=== PATIENT | male | born 1980 | race Caucasian/White ===

== ENCOUNTER 2019-02-18 16:15 | Inpatient (IN) ==
[2019-02-18] MEDS ORDERED: ONDANSETRON INJ 2 MG/ML 2 ML VIAL IV STA (16:29)
[2019-02-18] MEDS ORDERED: MoRPHine SULFATE 4 MG/ML 1 ML CARP\\VIAL IV PRN (16:29)
[2019-02-18] MEDS ORDERED: SODIUM CHLORIDE 0.9% 1000ML 1,000 ML IV SCH (16:30)
--- NOTE | 2019-02-18 16:49 | Emergency Department Note ---
Entered by Citlali Tian acting as a scribe for History of Present Illness General Chief complaint: Abdominal Pain Stated complaint: BELLY PAIN Time Seen by Provider: 02/18/19 16:27 History of Present Illness Provider complaint: RUQ abdominal pain Onset (ago): day(s) 4 Location: abdomen (RUQ) Radiation: back (upper right side) Pain Consistency: + constant Maximum Pain Intensity: 10 Exacerbated By: + eating (today after lunch) Associated symptoms: + denies other symptoms (rectal bleeding, vomiting, history of cholecystectomy, appendectomy and kidney stones. ) and + other (nauseas, dark urine) The patient is a 38 year old male who presents to the ED with complaints of constant RUQ abdominal pain that started 4 days ago. The patient states that the pain radiates into the upper right side of his back. The patient states that his pain was exacerbated today after eating lunch. The patient states that he also feels nauseas and his urine has been darker than usual. The patient denies rectal bleeding, vomiting and a history of cholecystectomy, appendectomy and kidney stones. Home Medications Home Medications Medication Instructions Recorded Confirmed Type atenolol 0 mg PO QAM 12/25/18 02/18/19 History dextroamphetamine-amphetamine 20 mg PO BID 12/25/18 02/18/19 History [Adderall] sertraline [Zoloft] 100 mg PO QPM 12/25/18 02/18/19 History ghapzkw-pnfxgzpyyfwyv-fmqeqbza 1 tab PO Q6H PRN 02/18/19 02/18/19 History [Excedrin Migraine] nicotine [Nicoderm CQ] 1 patch TD DAILY PRN 02/18/19 02/18/19 History Allergies Allergy/AdvReac Type Severity Reaction Status Date / Time No Known Allergies Allergy Unverified 12/25/18 23:02 Past Med/Surg History Medical History No pertinent past medical history Surgical History H/O shoulder surgery S/P tooth extraction Social History Preferred Language: Finnish Communication Ability: Effective Title Curator Required: No Beliefs That Will Affect Care: None Current Living Situation: Homeless Feels Safe at Home: Yes Smoking Status: Current every day smoker Tobacco Type: cigarettes ; Second Hand Exposure: Yes ; Hx Alcohol Use: No Hx Substance Use: Yes substance use type: marijuana Last Used Substance: Days (ago) Review of Systems See HPI for pertinent positives & negatives. and A total of 10 systems reviewed and were otherwise negative Physical Exam Vital Signs Vital Signs - 24 hr 02/18/19 16:24 02/18/19 16:46 02/18/19 16:47 Temperature 36.4 C L Temperature Source Oral Pulse Rate 106 H Pulse Rate from SpO2 Sensor Respiratory Rate 16 Respiratory Effort / Characteristics Non-Labored Spontaneous Respiratory Depth Normal Blood Pressure 131/79 Blood Pressure Mean 96 Blood Pressure Position Sitting Pulse Oximetry 98 98 Oxygen Delivery Method Room Air Room Air Room Air Sepsis Recent Fever Within 48 Hours No Sepsis Action Taken by Nursing No Action Required 02/18/19 17:30 02/18/19 19:03 Temperature Temperature Source Pulse Rate 92 H 83 Pulse Rate from SpO2 Sensor 94 H 84 Respiratory Rate 30 H 22 Respiratory Effort / Characteristics Respiratory Depth Blood Pressure 124/72 118/65 Blood Pressure Mean 79 91 Blood Pressure Position Pulse Oximetry 96 95 Oxygen Delivery Method Sepsis Recent Fever Within 48 Hours Sepsis Action Taken by Nursing GENERAL: Patient is awake alert in no acute distress patient is resting comfortably and showing no signs of anxiety EYES: The conjunctivae are clear. The pupils are round and reactive. EARS, NOSE, MOUTH AND THROAT: The nose is without any evidence of any deformity. Mucous membranes are moist. Tongue is midline. NECK: The neck is nontender and supple. RESPIRATORY: Normal respiratory effort is noted there is no evidence of wheezing rhonchi or rales CARDIOVASCULAR: Regular rate and rhythm noted there no murmurs rubs or gallops normal S1 normal S2. GASTROINTESTINAL: The abdomen is soft. There is right upper quadrant tenderness to palpation with significant guarding. BACK: No midline tenderness or or step-off noted range of motion in flexion extension as well as rotation no signs of muscle spasm noted MUSCULOSKELETAL/EXTREMITIES: There is no evidence of gross deformity full range of motion is noted in the hips and shoulders. SKIN: There is no obvious evidence of any rash. There are no petechiae, pallor or cyanosis noted. NEUROLOGIC: Patient is awake alert and oriented x3. Course Course 1629: Past medical records reviewed. The patient was evaluated in room A04B. A complete history and physical exam was performed. 1724: I reevaluated the patient and he is still in pain after receiving pain medication. 1727: I discussed the patient's case with Dr. Dominique Johnson. He recommends getting an ultrasound on the patient. 1859: I discussed the patient's ultrasound results with Dr. Dominique Johnson. He will evaluate the patient for further management. 190: I updated the patient on the plan for admission and he verbally agrees and understands. Consultations Consultation #1: I discussed the patient's case with Dr. Dominique Johnson. He recommends getting an ultrasound on the patient. Time: 17:27 Consultation #2: I discussed the patient's ultrasound results with Dr. Dominique Johnson. He will evaluate the patient for further management. Time: 18:59 Administered Medications Hydromorphone HCl (Dilaudid) 1 mg IV Q3H PRN PRN Reason: MILD Pain (Scale 1,2,3) Stop: 03/04/19 19:40 Last Admin: 02/18/19 21:53 Dose: 1 mg Documented by: [id number] Lactated Ringer's (Lr) 1,000 mls @ 125 mls/hr IV .Q8H BORIS Stop: 03/20/19 19:40 Last Admin: 02/18/19 21:53 Dose: 125 mls/hr Documented by: [id number] Piperacillin Sod/Tazobactam (Sod 3.375 gm/ Dextrose) 115 mls @ 28.75 mls/hr IV Q8H BORIS; Protocol Stop: 02/28/19 19:40 Last Admin: 02/18/19 21:53 Dose: 28.8 mls/hr Documented by: [id number] Sertraline HCl (Zoloft) 100 mg PO QPM BORIS Stop: 03/20/19 20:59 Last Admin: 02/18/19 22:05 Dose: 100 mg Documented by: [id number] Discontinued Medications Sodium Chloride (Nss 1000ml) 1,000 mls @ 999 mls/hr IV .Q1H1M BORIS Stop: 02/18/19 17:30 Last Infusion: 02/18/19 17:40 Dose: 0 mls/hr Documented by: [id number] Admin: 02/18/19 16:41 Dose: 999 mls/hr Documented by: [id number] Piperacillin Sod/Tazobactam Sod (Zosyn) 4.5 gm in 120 mls @ 240 mls/hr IV NOW ONE Stop: 02/18/19 17:59 Last Infusion: 02/18/19 18:53 Dose: 0 mls/hr Documented by: [id number] Admin: 02/18/19 17:36 Dose: 240 mls/hr Documented by: [id number] Ioversol (Optiray 320 100ml) 90 ml IV ONCE PRN PRN Reason: Interaction Checking Stop: 02/22/19 17:03 Last Admin: 02/18/19 17:04 Dose: 90 ml Documented by: [id number] Morphine Sulfate (Morphine Sulfate) 4 mg IV Q15M PRN PRN Reason: Pain Stop: 03/04/19 16:28 Last Admin: 02/18/19 16:42 Dose: 4 mg Documented by: [id number] Ondansetron HCl (Zofran) 4 mg IV NOW STA Stop: 02/18/19 16:30 Last Admin: 02/18/19 16:42 Dose: 4 mg Documented by: [id number] Medical Decision Making Differential Diagnosis Differential diagnosis: Etiologies such as biliary colic, cholecystitis, hepatitis, pancreatitis, cardiac disease, pancreatitis, gastritis, peptic ulcer disease, appendicitis, cystitis, diverticulitis, mesenteric ischemia, inflammatory bowel disease, ileus, bowel obstruction, testicular torsion, aortic pathology, shingles, as well as others were considered. Medical Records Attestation: I reviewed the patient's medical records. Home Medications Current Medication List: was personally reviewed by me Laboratory Data Attestation: I reviewed the patient's lab results. Result diagrams: 02/18/19 16:39 02/18/19 16:39 Lab Results 02/18/19 02/18/19 02/18/19 Range/Units 16:39 16:39 16:44 WBC 9.62 (4.8-10.8) K/uL RBC 4.72 (4.7-6.1) M/uL Hgb 15.8 (14.0-18.0) g/dL POC Hgb 15.6 (14.0-18.0) g/dl Hct 45.7 (42-52) % POC Hct 46 (42-52) % MCV 96.8 (80-100) fL MCH 33.5 (25-34) pg MCHC 34.6 (32-36) g/dL RDW Std Deviation 46.7 H (36.4-46.3) fL RDW Coeff of Zakia 13.2 (11.5-14.5) % Plt Count 261 (130-400) K/uL MPV 10.5 H (7.4-10.4) fL Immature Gran % (Auto) 0.3 % Neut % (Auto) 54.5 % Lymph % (Auto) 34.7 % [facility] % (Auto) 7.8 % Eos % (Auto) 2.0 % Baso % (Auto) 0.7 % Immature Gran # (Auto) 0.03 H (0.00-0.02) K/uL Neut # (Auto) 5.24 (1.4-6.5) K/uL Lymph # (Auto) 3.34 (1.2-3.4) K/uL [facility] # (Auto) 0.75 H (0.11-0.59) K/uL Eos # (Auto) 0.19 (0-0.5) K/uL Baso # (Auto) 0.07 (0-0.2) K/uL POC Sodium 141 (135-144) mEq/L Sodium 139 (136-145) mmol/L POC Potassium 3.7 (3.3-5.0) mEq/L Potassium 3.7 (3.5-5.1) mmol/L POC Chloride 105 (101-112) mEq/L Chloride 110 H (98-107) mmol/L Carbon Dioxide 26 (21-32) mmol/L POC Total CO2 25 (24-31) mEq/l Anion Gap 3.0 (3-11) POC Anion Gap 15.0 L (16-25) mmol/L POC BUN 17 (7-18) mg/dl BUN 16 (7-18) mg/dl Creatinine 1.10 (0.6-1.4) mg/dl POC Creatinine 1.0 (0.6-1.3) mg/dl Est Cr Clr Drug Dosing 112.7 ml/min Est GFR ( Amer) 98.9 Est GFR (Non-Af Amer) 85.3 BUN/Creatinine Ratio 14.8 (10-20) Glucose 89 (70-99) mg/dl POC Glucose (other) 88 (70-99) mg/dl Calcium 8.8 (8.5-10.1) mg/dl POC Ioniz Calcium Kemi 1.15 (1.12-1.32) mmol/l Total Bilirubin 0.2 (0.2-1) mg/dl AST 14 L (15-37) U/L ALT 43 (12-78) U/L Alkaline Phosphatase 79 (45-117) U/L Total Protein 7.6 (6.4-8.2) gm/dl Albumin 3.9 (3.4-5.0) gm/dl Globulin 3.7 (2.5-4.0) gm/dl Albumin/Globulin Ratio 1.1 (0.9-2) Lipase 188 (73-393) U/L Urine Color Urine Appearance (Clear) Urine pH (4.5-7.5) Ur Specific Rolette (1.000-1.030) Urine Protein (Negative) Urine Glucose (UA) (Negative) Urine Ketones (Negative) Urine Blood (Negative) Urine Nitrite (Negative) Urine Bilirubin (Negative) Urine Urobilinogen (Negative) Ur Leukocyte Esterase (Negative) 02/18/19 Range/Units 19:25 WBC (4.8-10.8) K/uL RBC (4.7-6.1) M/uL Hgb (14.0-18.0) g/dL POC Hgb (14.0-18.0) g/dl Hct (42-52) % POC Hct (42-52) % MCV (80-100) fL MCH (25-34) pg MCHC (32-36) g/dL RDW Std Deviation (36.4-46.3) fL RDW Coeff of Zakia (11.5-14.5) % Plt Count (130-400) K/uL MPV (7.4-10.4) fL Immature Gran % (Auto) % Neut % (Auto) % Lymph % (Auto) % [facility] % (Auto) % Eos % (Auto) % Baso % (Auto) % Immature Gran # (Auto) (0.00-0.02) K/uL Neut # (Auto) (1.4-6.5) K/uL Lymph # (Auto) (1.2-3.4) K/uL [facility] # (Auto) (0.11-0.59) K/uL Eos # (Auto) (0-0.5) K/uL Baso # (Auto) (0-0.2) K/uL POC Sodium (135-144) mEq/L Sodium (136-145) mmol/L POC Potassium (3.3-5.0) mEq/L Potassium (3.5-5.1) mmol/L POC Chloride (101-112) mEq/L Chloride (98-107) mmol/L Carbon Dioxide (21-32) mmol/L POC Total CO2 (24-31) mEq/l Anion Gap (3-11) POC Anion Gap (16-25) mmol/L POC BUN (7-18) mg/dl BUN (7-18) mg/dl Creatinine (0.6-1.4) mg/dl POC Creatinine (0.6-1.3) mg/dl Est Cr Clr Drug Dosing ml/min Est GFR ( Amer) Est GFR (Non-Af Amer) BUN/Creatinine Ratio (10-20) Glucose (70-99) mg/dl POC Glucose (other) (70-99) mg/dl Calcium (8.5-10.1) mg/dl POC Ioniz Calcium Kemi (1.12-1.32) mmol/l Total Bilirubin (0.2-1) mg/dl AST (15-37) U/L ALT (12-78) U/L Alkaline Phosphatase (45-117) U/L Total Protein (6.4-8.2) gm/dl Albumin (3.4-5.0) gm/dl Globulin (2.5-4.0) gm/dl Albumin/Globulin Ratio (0.9-2) Lipase (73-393) U/L Urine Color Yellow Urine Appearance Clear (Clear) Urine pH 7.5 (4.5-7.5) Ur Specific Rolette > 1.045 H (1.000-1.030) Urine Protein Negative (Negative) Urine Glucose (UA) Negative (Negative) Urine Ketones Negative (Negative) Urine Blood Negative (Negative) Urine Nitrite Negative (Negative) Urine Bilirubin Negative (Negative) Urine Urobilinogen Negative (Negative) Ur Leukocyte Esterase Negative (Negative) Imaging Data Radiologist's Impression: Radiology results as stated below per my review and the radiologist's interpretation: ABDOMEN AND PELVIS CT WITH IV CONTRAST CT DOSE: 877.68 mGy.cm HISTORY: Right upper abdominal pain. TECHNIQUE: Multiaxial CT images of the abdomen and pelvis were performed following the use of intravenous contrast. A dose lowering technique was utilized adhering to the principles of ALARA. COMPARISON STUDY: None. FINDINGS: The lung bases are clear. No pneumoperitoneum. No pneumatosis. Bila teral L5 spondylolysis. Small diverticulum at the second portion of the duodenum. Tiny fat-containing bilateral inguinal hernias. The liver, spleen, adrenal glands, pancreas, and kidneys are unremarkable. No hydronephrosis. No retroperitoneal lymphadenopathy. The gallbladder slightly distended. There is minimal inflammatory change surrounding the gallbladder. Therefore, this is concerning for a developing acute cholecystitis. Normal bladder. No bowel wall thickening or obstruction. Normal appendix. IMPRESSION: The gallbladder slightly distended. There is minimal inflammatory change surrounding the gallbladder. Therefore, this is concerning for a developing acute cholecystitis. Clinical correlation and/or right upper quadrant ultrasound recommended. ACT 112: Negative or not required by law. Electronically signed by: Nino Mitchell M.D. 02/18/2019 5:19 PM ABDOMINAL ULTRASOUND, RIGHT UPPER QUADRANT HISTORY: Right upper quadrant pain. COMPARISON: Abdomen and pelvis CT 02/18/2019. FINDINGS: Pancreas: Obscured by overlying bowel gas. Liver: Unremarkable. Gallbladder: The gallbladder is mildly distended. Mild gallbladder wall t hickening up to 4 mm. A few punctate gallstones are identified. The technologist was unable to assess for a sonographic Parks sign due to prior administration of pain medication. CBD: 3 mm in diameter. Right kidney: No hydronephrosis. IMPRESSION: Mildly distended gallbladder with mild gallbladder wall thickening and a few punctate gallstones. This is concerning for acute cholecystitis. Clinical correlation recommended. ACT 112: Negative or not required by law. Electronically signed by: Nino Mitchell M.D. 02/18/2019 6:51 PM Blood Pressure Blood Pressure Findings: Elevated blood pressure Blood Pressure Disposition: further management by hospitalist SHANKAR Diallo The patient is a 38-year-old male who presented to the emergency department for an evaluation of right upper quadrant pain. The patient was seen initially at [facility] but then was sent to the emergency department for further evaluation. The patient's history and physical exam appear to be consistent with cholecystitis. His white blood cell count was not elevated. His liver function studies were not elevated. CT of the abdomen and pelvis was obtained and showed signs of possible cholecystitis. This was confirmed on ultrasound. The patient was treated with IV fluids IV pain medication and IV antiemetics. He was also treated with IV antibiotics. I discussed his case with the on-call general surgeon. They have agreed to evaluate the patient in the emergency department for further management and disposition. I discussed the patient's laboratory and radiographic studies with him. Impression & Plan Acute cholecystitis, RUQ abdominal pain Discharge Plan Visit Data *Final* Discharge Date/Time: 02/18/19 19:57 Chief Complaint: Abdominal Pain Stated Complaint: BELLY PAIN ED Provider: Gonzalez Johnson Discharge Problem: Acute cholecystitis, RUQ abdominal pain Patient Disposition: Admitted As Inpatient Discharge Instructions Interventions: ED Discharge Assessment Last Done: 02/18/19 19:57 The scribe's documentation has been prepared under my direction and personally reviewed by me in its entirety. I confirm that the note above accurately reflects all work, treatment, procedures, and medical decision making performed by me.
[2019-02-18 16:50] LABS: Basophils # (auto) 0.07 K/uL (0-0.2); Basophils % (auto) 0.7 %; Eosinophils # (auto) 0.19 K/uL (0-0.5); Hematocrit (blood only) 45.7 % (42-52); Hemoglobin 15.8 g/dL (14.0-18.0); Immature Granulocytes # (auto) 0.03 K/uL (0.00-0.02); Immature Granulocytes % (auto) 0.3 %; Lymphocytes # (auto) 3.34 K/uL (1.2-3.4); Lymphocytes % (auto) 34.7 %; Mean Corpuscular Hemoglobin 33.5 pg (25-34); Mean Corpuscular Hgb Conc 34.6 g/dL (32-36); Mean Corpuscular Volume 96.8 fL (80-100); Mean Platelet Volume 10.5 fL (7.4-10.4); Monocytes # (auto) 0.75 K/uL (0.11-0.59); Monocytes % (auto) 7.8 %; Neutrophils # (auto) 5.24 K/uL (1.4-6.5); Neutrophils % (auto) 54.5 %; Platelet Count 261 K/uL (130-400); RDW Coefficient of Variation 13.2 % (11.5-14.5); RDW Standard Deviation 46.7 fL (36.4-46.3); Red Blood Count 4.72 M/uL (4.7-6.1); White Blood Count 9.62 K/uL (4.8-10.8)
[2019-02-18 16:57] LABS: iSTAT Hemoglobin 15.6 g/dl (14.0-18.0); iSTAT Ionized Calcium 1.15 mmol/l (1.12-1.32); iSTAT Potassium 3.7 mEq/L (3.3-5.0)
[2019-02-18] MEDS ORDERED: IOVERSOL 100ml IV PRN (17:04)
[2019-02-18 17:10] LABS: Albumin Level 3.9 gm/dl (3.4-5.0); BUN Creatinine Ratio 14.8 (10-20); Calcium 8.8 mg/dl (8.5-10.1); Creatinine Clr Calc Pharmacy 112.7 ml/min; Est GFR (African American) 98.9; Est GFR (Non-African American) 85.3; Potassium 3.7 mmol/L (3.5-5.1)
[2019-02-18 17:12] LABS: Albumin Globulin Ratio 1.1 (0.9-2); Bilirubin,Total 0.2 mg/dl (0.2-1); Globulin 3.7 gm/dl (2.5-4.0); Total Protein 7.6 gm/dl (6.4-8.2)
--- NOTE | 2019-02-18 17:20 | CT Scan Report ---
ABDOMEN AND PELVIS CT WITH IV CONTRAST CT DOSE: 877.68 mGy.cm HISTORY: Right upper abdominal pain. TECHNIQUE: Multiaxial CT images of the abdomen and pelvis were performed following the use of intrave nous contrast. A dose lowering technique was utilized adhering to the principles of ALARA. COMPARISON STUDY: None. FINDINGS: The lung bases are clear. No pneumoperitoneum. No pneumatosis. Bilateral L5 spondylolysis. Small diverticulum at the second portion of the duodenum. Tiny fat-containing bilateral inguinal davidson ias. The liver, spleen, adrenal glands, pancreas, and kidneys are unremarkable. No hydronephrosis. No retroperitoneal lymphadenopathy. The gallbladder slightly distended. There is minimal inflammatory c hange surrounding the gallbladder. Therefore, this is concerning for a developing acute cholecystitis . Normal bladder. No bowel wall thickening or obstruction. Normal appendix. IMPRESSION: The gallbladder slightly distended. There is minimal inflammatory change surrounding the gallbladder. Therefore, this is concerning for a developing acute cholecystitis. Clinical correlation and/or righ t upper quadrant ultrasound recommended. ACT 112: Negative or not required by law. Electronically signed by: Nino Mitchell M.D. 02/18/2019 5:19 PM
[2019-02-18] MEDS ORDERED: PIPERACILLIN/TAZOBACTAM 4.5 GM/120 ML BAG IV ONE (17:30)
[2019-02-18] MEDS ORDERED: PIPERACILL/TAZOBAC CONSULT ACTIVE PRN ×2 (17:30→19:41)
--- NOTE | 2019-02-18 18:53 | Ultrasound Report ---
ABDOMINAL ULTRASOUND, RIGHT UPPER QUADRANT HISTORY: Right upper quadrant pain. COMPARISON: Abdomen and pelvis CT 02/18/2019. FINDINGS: Pancreas: Obscured by overlying bowel gas. Liver: Unremarkable. Gallbladder: The gallbladder is mildly distended. Mild gallbladder wall thickening up to 4 mm. A few punctate gallstones are identified. The technologist was unable to assess for a sonographic Parks si gn due to prior administration of pain medication. CBD: 3 mm in diameter. Right kidney: No hydronephrosis. IMPRESSION: Mildly distended gallbladder with mild gallbladder wall thickening and a few punctate gallstones. Thi s is concerning for acute cholecystitis. Clinical correlation recommended. ACT 112: Negative or not required by law. Electronically signed by: Nino Mitchell M.D. 02/18/2019 6:51 PM
[2019-02-18] MEDS ORDERED: ONDANSETRON INJ 2 MG/ML 2 ML VIAL IV PRN (19:41)
[2019-02-18] MEDS ORDERED: HYDROCODONE/ACETAMOPHEN 5/325MG TAB PO PRN (19:41)
--- NOTE | 2019-02-18 19:52 | History & Physical Report ---
Date of Service February 18, 2019 Assessment & Plan (1) Acute cholecystitis: The patient denied any previous history of fatty food spicy food intolerances although tonight he felt quite bloated after eating [place] food earlier today he has been sick for 4 days and he said he was hungry and wanted [place] foods His family history states that his dad's gallbladder exploded Pathophysiology of gallbladder disease was discussed with the patient and significant other including the recent finding of an acute cholecystitis without any evidence of common bile duct stones either clinically (no jaundice no changes in urine) and chemically liver function test normal radiographically no common bile duct dilatation This I recommended to proceed with laparoscopic cholecystectomy cholangiogram possible open and will proceed accordingly in the morning Risk and complications of the procedure were explained to the patient including injury to other organs bile leak infection and he would like to proceed accordingly Present on Admission?: Yes History of Present Illness This 38-year-old gentleman who came into the emergency room after 4-day history of abdominal pain and localized mostly right upper quadrant was evaluated by the emergency room physician including CT scan of the abdomen and ultrasound and we are consults regarding acute cholecystitis since the ultrasound showed stones and thick walled gallbladder The patient and his significant other originally from [place] recently moved in the area and are living in a homeless care home Primary Care Provider: NO PCP Allergies Allergy/AdvReac Type Severity Reaction Status Date / Time No Known Allergies Allergy Unverified 12/25/18 23:02 Home Medications Home Medications Medication Instructions Recorded Confirmed Type atenolol 0 mg PO QAM 12/25/18 02/18/19 History dextroamphetamine-amphetamine 20 mg PO BID 12/25/18 02/18/19 History [Adderall] sertraline [Zoloft] 100 mg PO QPM 12/25/18 02/18/19 History kiiltwx-qtyxdqfsxwbwh-cgniecfk 1 tab PO Q6H PRN 02/18/19 02/18/19 History [Excedrin Migraine] nicotine [Nicoderm CQ] 1 patch TD DAILY PRN 02/18/19 02/18/19 History Past Med/Surg History Medical History No pertinent past medical history Surgical History H/O shoulder surgery S/P tooth extraction Social History Feels Safe at Home: Yes Smoking Status: Current every day smoker Physical Exam Constitutional: WD/WN, vitals as above well developed, well nourished and + obese Eyes: PERRL, conjunctivae normal, anicteric sclerae ENMT: external ear and nose normal, oropharynx normal Neck: trachea midline, no thyromegaly Respiratory: normal respiratory effort, lungs clear to auscultation Cardiovascular: RRR, no murmur, no edema Gastrointestinal (Abdomen): Exquisite tenderness in the right upper quadrant negative Parks sign rest of the abdomen is negative Musculoskeletal: no cyanosis or clubbing, extremities motor strength 5/5 Skin: no rashes, warm and dry Results & Data Vital Signs (Past 12 Hours) Vital Signs Temp Pulse Resp BP Pulse Ox 02/18/19 19:03 83 22 118/65 95 02/18/19 17:30 92 H 30 H 124/72 96 02/18/19 16:46 98 02/18/19 16:24 36.4 C L 106 H 16 131/79 98 Code Status & VTE Plan VTE Prophylaxis Plan VTE Prophylaxis will be ordered: Yes PG Care Time/CCT Total # of Minutes Spent Total Time Spent with Patient: Total time spent is greater than 50% in coordination of care (as documented) at patient's floor/unit and/or counseling patient:
[2019-02-18 20:01] LABS: Appearance Urine Clear (Clear); Bilirubin Urine Negative (Negative); Blood Urine Negative (Negative); Color Urine Yellow; Glucose Urine UA Negative (Negative); Ketones Urine Negative (Negative); Leukocyte Esterase Urine Negative (Negative); Nitrite Urine Negative (Negative); Protein Urine Negative (Negative); Specific Gravity Urine > 1.045 (1.000-1.030); Urobilinogen Urine Negative (Negative); pH Urine 7.5 (4.5-7.5)
[2019-02-18] MEDS ORDERED: NICOTINE 21 MG/24 HR TDSY TD PRN (20:19)
[2019-02-18] MEDS: LACTATED RINGER'S 1,000 ML IV SCH (21:53)
[2019-02-18] MEDS: HYDROmorphone INJ 0.5 MG/0.5 ML SYR IV PRN (21:53)
[2019-02-18] MEDS: PIPERACILLIN/TAZOBACTAM 3.375 GM in DEXTROSE 5% 100 ML IV SCH (21:53)
[2019-02-18] MEDS: SERTRALINE HCL 100 MG TABLET PO SCH (22:05)
[2019-02-19] MEDS: LACTATED RINGER'S 1,000 ML IV SCH ×3 (04:19→13:55)
[2019-02-19] MEDS: PIPERACILLIN/TAZOBACTAM 3.375 GM in DEXTROSE 5% 100 ML IV SCH ×2 (04:19→13:40)
[2019-02-19] MEDS: AMPHETAMINE ASP/SULF/DEXTRAMPH 20 MG TAB PO SCH ×2 (06:06→13:55)
[2019-02-19] MEDS ORDERED: PNEUMOCOCCAL Polysaccharide Vaccine 25mcg/0.5mL vial/Syr IM ONE (06:30)
[2019-02-19] MEDS: HYDROmorphone INJ 0.5 MG/0.5 ML SYR IV PRN (07:55)
--- NOTE | 2019-02-19 08:02 | History & Physical Bridge Note ---
Date of Service February 19, 2019 History & Physical Bridge Note I have examined the patient, reviewed the History & Physical and in the interval since the performance of the History & Physical I have noted the following changes of clinical significance: no changes noted Patient is alert laying in bed significant other sleeping on a couch next to bed Patient still complaining of pain right upper quadrant on exam unchanged from yesterday tender but no Parks sign We will proceed with lap cholecystectomy intraoperative cholangiogram possible open scheduled for this morning
[2019-02-19] MEDS: ATENOLOL 25 MG TABLET PO SCH (09:29)
[2019-02-19] MEDS ORDERED: fentaNYL citrate 100 MCG/2 ML VIAL ONE ×3 (10:05→11:40)
[2019-02-19] MEDS ORDERED: ROCURONIUM BROMIDE 10 MG/ML 5 ML VIAL ONE (10:05)
[2019-02-19] MEDS ORDERED: LIDOCAINE HCL 2% 2 ML VIAL/AMP(20MG/ML) INFIL ONE (10:05)
[2019-02-19] MEDS ORDERED: NEOSTIGMINE METHYLSULFATE 5 MG/5 ML SYR ONE (10:05)
[2019-02-19] MEDS ORDERED: LARYING-O-JET KIT (LTA) ONE (10:05)
[2019-02-19] MEDS ORDERED: GLYCOPYRROLATE 0.2 MG/ML VIAL ONE (10:05)
[2019-02-19] MEDS ORDERED: PROPOFOL IV EMULSION 10 MG/ML 20 ML VIAL IV ONE (10:05)
[2019-02-19] MEDS ORDERED: MIDAZOLAM HCL 1 MG/ML 2ML VIAL ONE (10:05)
[2019-02-19] MEDS ORDERED: ONDANSETRON INJ 2 MG/ML 2 ML VIAL IV PRN (10:19)
[2019-02-19] MEDS ORDERED: HYDROmorphone INJ 2 MG/ML SYR/VIAL IV PRN (10:19)
[2019-02-19] MEDS ORDERED: PROMETHAZINE HCL 6.25 MG in SODIUM CHLORIDE 0.9% 50 ML IV PRN (10:19)
[2019-02-19] MEDS ORDERED: ATROPINE SULFATE 0.1 MG/ML 10ML SYR IV PRN (10:19)
[2019-02-19] MEDS ORDERED: ePHEDrine sulfate 50 MG/ML AMP IV PRN (10:19)
--- NOTE | 2019-02-19 10:19 | Anesthesiology Consultation ---
Date of Service February 19, 2019 Obesity Smoker ?DEE per girlfriend Assessment & Plan (1) Encounter for pre-operative examination: Chart Review Chart Review: Acceptable Risk for Surgery and Patient NOT seen in Pre Admission Testing Consults Requested none ASA ASA2 Proposed Anesthesia Anesthesia Type: General Risk / Benefits Reviewed With: PT / POA / Parent / Guardian, Accepts Plan and Informed Consent Obtained History Surgery Operation Date: 02/19/19 07:00 Proposed Procedures p Laparoscopic Cholecystectomy with Cholangiogram, Possible Open - Luis Antonio Maryanne Barnard MD Height/Weight Height: 5 ft 11 in Weight: 102.9 kg Allergies Allergy/AdvReac Type Severity Reaction Status Date / Time No Known Allergies Allergy Unverified 12/25/18 23:02 Medications Home Medications Medication Instructions Recorded Confirmed Last Taken atenolol 0 mg PO QAM 12/25/18 02/18/19 02/17/19 dextroamphetamine-amphetamine 20 mg PO BID 12/25/18 02/18/19 02/18/19 [Adderall] sertraline [Zoloft] 100 mg PO QPM 12/25/18 02/18/19 02/17/19 biezadz-zkhuwynijbams-kvzeaflr 1 tab PO Q6H PRN 02/18/19 02/18/19 02/17/19 17:00 [Excedrin Migraine] 2 tabs nicotine [Nicoderm CQ] 1 patch TD DAILY PRN 02/18/19 02/18/19 Unknown Active Medications Generic Name Dose Route Start Last Admin Trade Name Freq PRN Reason Stop Dose Admin Hydrocodone Bitart/Acetaminophen 1 tab 02/18/19 19:41 02/19/19 04:18 [place] 5/325 PO 03/04/19 19:40 1 tab Q4H PRN Administration MODERATE Pain (Scale 4,5,6) Amphetamine/Dextroamphetamine 20 mg 02/19/19 07:00 02/19/19 06:06 Adderall PO 03/05/19 06:59 20 mg BID@0700,1300 BORIS Administration Atenolol 25 mg 02/19/19 09:00 02/19/19 09:29 Tenormin PO 03/21/19 08:59 25 mg QAM BORIS Administration Hydromorphone HCl 1 mg 02/18/19 19:41 02/19/19 07:55 Dilaudid IV 03/04/19 19:40 1 mg Q3H PRN Administration MILD Pain (Scale 1,2,3) Lactated Ringer's 1,000 mls @ 125 mls/hr 02/18/19 19:41 02/19/19 04:19 Lr IV 03/20/19 19:40 125 mls/hr .Q8H BORIS Administration Piperacillin Sod/Tazobactam 115 mls @ 28.75 mls/hr 02/18/19 19:41 02/19/19 09:26 Sod 3.375 gm/ Dextrose IV 02/28/19 19:40 Infused Q8H BORIS Infusion Protocol Miscellaneous 1 ea 02/19/19 08:59 02/19/19 09:26 Remove Nicoderm Patch N/A 03/21/19 08:58 Not Given DAILY@0859 BORIS Sertraline HCl 100 mg 02/18/19 21:00 02/18/19 22:05 Zoloft PO 03/20/19 20:59 100 mg QPM BORIS Administration NPO Date Last Intake of Fluids: 02/18/19 Time Last Intake of Fluids: 14:00 Date Last Intake of Solids: 02/18/19 Time Last Intake of Solids: 14:00 Past Medical History Medical History No pertinent past medical history Exercise / Class Metabolic Activity II 4-5 Yardwork/Stairs/Walk up hill Past Surgical History Surgical History H/O shoulder surgery S/P tooth extraction Past Anesthesia History No Hx of Anesthesia Complications and No Family Hx of Anesthesia Complications History of PONV No Hx of PONV and No Hx of Motion Sickness Social History Smoking Status: Current every day smoker tobacco type: cigarettes Do You Dip or Chew Tobacco: No Hx Alcohol Use: No Hx Substance Use: Yes substance use type: marijuana Last Used Substance: Days (ago) Last Used Substance Other:: 02/17/2019 Physical Exam Vital Signs Last Vital Signs Temp 36.4 C L 02/19/19 10:08 Pulse 80 02/19/19 10:08 Resp 18 02/19/19 10:08 BP 129/86 02/19/19 10:08 Pulse Ox 96 02/19/19 10:08 ENMT Mouth: no dentition abnormality Thyromental Distance: > or= 3.5 Finger Breadths Mallampati Class: II Neck normal visual inspection Respiratory normal respiratory effort Auscultation: lungs clear to auscultation bilaterally Cardiovascular Rate/Rhythm: regular rate and regular rhythm Psychiatric Orientation: alert Testing Laboratory Results 02/18/19 16:39 02/18/19 16:39 Urine Color Yellow 02/18/19 19:25 Urine Appearance Clear (Clear) 02/18/19 19:25 Urine pH 7.5 (4.5-7.5) 02/18/19 19:25 Ur Specific [place] > 1.045 (1.000-1.030) H 02/18/19 19:25 Urine Protein Negative (Negative) 02/18/19 19:25 Urine Glucose (UA) Negative (Negative) 02/18/19 19:25 Urine Ketones Negative (Negative) 02/18/19 19:25 Urine Nitrite Negative (Negative) 02/18/19 19:25 Ur Leukocyte Esterase Negative (Negative) 02/18/19 19:25
[2019-02-19] MEDS ORDERED: CONRAY 60% 50 ML VIAL ONE (10:29)
[2019-02-19] MEDS ORDERED: LIDOCAINE/EPINEPHRINE 1% 20 ML VIAL ONE (10:29)
--- NOTE | 2019-02-19 11:37 | Fluoroscopy Report ---
INTRAOPERATIVE CHOLANGIOGRAM HISTORY: Post cholecystectomy. FLUOROSCOPY TIME: 6 seconds. 4 fluoroscopic spot images. FINDINGS: Fluoroscopy was provided for an intraoperative cholangiogram status post cholecystectomy. C ontrast was injected through the cystic duct remnant. The common bile duct is normal in course and ca liber. Small round filling defects within the proximal common bile duct are seen on image 1 and 2. Ho wever, these are not seen on images 3 or 4. Therefore, these favor gas bubbles. Contrast extends into the small bowel. There is no intrahepatic bile duct dilatation. IMPRESSION: Fluoroscopy provided for an intraoperative cholangiogram status post cholecystectomy. No filling defects within the common bile duct. ACT 112: Negative or not required by law. Electronically signed by: Nino Mitchell M.D. 02/19/2019 11:36 AM
--- NOTE | 2019-02-19 11:49 | Post Operative Brief Note ---
PG Immediate Post Op with CF Date of Surgery February 19, 2019 Pre & Post Diagnosis Operation Date: 02/19/19 07:00 Pre-Op Diagnosis: ACUTE CHOLECYSTIS Post-Op Diagnosis: ACUTE CHOLECYSTIS I identified the patient and participated in the time-out.: Yes Procedure Operation Date: 02/19/19 07:00 Actual Procedures p Laparoscopic Cholecystectomy with Cholangiogram - Luis Antonio Barnard MD Surgeon Luis Antonio Barnard MD Explosives Operator Elisabeth KELSEY Estimated Blood Loss 5 Findings Consistent with Post-Op Diagnosis Specimens Specimen Description: A. Gallbladder
--- NOTE | 2019-02-19 12:08 | Post Operative Brief Note ---
PG Immediate Post Op with CF Date of Surgery February 19, 2019 Pre & Post Diagnosis Operation Date: 02/19/19 07:00 Pre-Op Diagnosis: ACUTE CHOLECYSTIS Post-Op Diagnosis: ACUTE CHOLECYSTIS I identified the patient and participated in the time-out.: Yes Procedure Operation Date: 02/19/19 07:00 Actual Procedures p Laparoscopic Cholecystectomy with Cholangiogram - Luis Antonio Barnard MD The patient was brought into the operating theater under general endotracheal anesthesia the abdomen was shaved and prepped Betadine scrub solution properly draped timeout was had patient was identified patient had preoperative antibiotics on the floor small incision was made supraumbilically Veress needle inserted followed by CO2 followed by 5 mm trocar point of entry inspected no injury identified direct visualization a 5 mm subcostal port x2 and epigastric port 5 mm was placed with preemptive local analgesic 1% Xylocaine with epi at this point the gallbladder was visualized easily appeared to be distended and tight therefore we aspirated her an aspirating needle and got thick green bile once deflated enough to handle we then used a lateral grasper to hold the gallbladder right at the puncture site where the needle had gone in elevated the gallbladder out of the leana hepatis area that we could expose therefore we dissected out the triangle JASIEL a lot of edema was appreciated most of dissection was blunt opening between the cystic duct and artery were easily identified we clipped the cystic duct at its takeoff from the gallbladder small opening cystic duct was made a #5 urethra #4 urethral catheter was inserted in the cystic duct after transversing abdominal wall and a 14 Angiocath serial x-rays were taken with initially saw few areas that seem like stones but was not sure if it is that or just bubbles we paced the patient reverse Trendelenburg and actually took a final x-ray which showed no other evidence of any filling defects cystic duct was catheter was removed the cystic duct was secured with 2 clips artery similarly clipped secured proximally with 2 clips one distally and divided gallbladder was taken out in the antegrade fashion using electrocautery leaving as much of posterior peritoneum intact as possible we checked the gallbladder fossa hemostasis was excellent the gallbladder was taken off the liver and taken out an Endopouch out through the epigastric port subhepatic suprahepatic area was then checked hemostasis appeared satisfactory placed the camera right subco stal port to visualize the umbilical opening and no adhesions that area was identified individual trocar was taken out under direct visualization the last umbilical trocar wounds were closed 4-0 Monocryl Steri-Strips applied procedure was tolerated well by the patient estimated blood loss 5 cc addendum Elisabeth KELSEY was present throughout the procedure and helped with exposure retraction camera work Surgeon Luis Antonio Barnard MD Wastewater Plant Operator Elisabeth KELSEY Estimated Blood Loss 5 Findings Consistent with Post-Op Diagnosis Specimens Specimen Description: A. Gallbladder
--- NOTE | 2019-02-19 12:09 | Post Operative Brief Note ---
PG Immediate Post Op with CF Date of Surgery February 19, 2019 Pre & Post Diagnosis Operation Date: 02/19/19 07:00 Pre-Op Diagnosis: ACUTE CHOLECYSTIS Post-Op Diagnosis: ACUTE CHOLECYSTIS I identified the patient and participated in the time-out.: Yes Procedure Operation Date: 02/19/19 07:00 Actual Procedures p Laparoscopic Cholecystectomy with Cholangiogram - Luis Antonio Barnard MD Surgeon Luis Antonio Barnard MD Director Of Religious Life Elisabeth KELSEY Estimated Blood Loss 5 Findings Consistent with Post-Op Diagnosis Specimens Specimen Description: A. Gallbladder
--- NOTE | 2019-02-19 12:13 | Operative Report ---
PG Post Operative Report Pre & Post Diagnosis Operation Date: 02/19/19 07:00 Pre-Op Diagnosis: ACUTE CHOLECYSTIS Post-Op Diagnosis: ACUTE CHOLECYSTIS I identified the patient and participated in the time-out.: Yes Procedure Operation Date: 02/19/19 07:00 Actual Procedures p Laparoscopic Cholecystectomy with Cholangiogram - Luis Antonio Barnard MD The patient was brought into the operating theater general trach anesthesia the abdomen was prepped Betadine scrub solution properly draped timeout was had patient was identified patient had preoperative antibiotic given up on the floor small incision was made supraumbilically Veress needle introduced followed by CO2 followed by 5 mm trocar followed by the camera no injury identified on direct visualization 5 mm epigastric and 2 5 mm subcostal ports were placed with preemptive local analgesic 1% Xylocaine power is identified appeared tense for an aspirating needle was brought through the epigastric area inserting the gallbladder and deflated it sufficient enough that a grasper coming out laterally right upper quadrant was able to grab the gallbladder the entry site of the needle into the gallbladder the aspirating material appears dark bilious in nature gallbladder placed under traction the triangle JASIEL was easily identified by using blunt dissection some significant edema was appreciated placed a clip proximally in the takeoff of the cystic duct small opening cystic duct was made #4 urethral catheter transverse to the abdominal wall was positioned cystic duct x-rays were taken which showed free flow and duodenum there were a few areas that we were sure if it was a small specks of air or stones once we manipulated the patient in reverse Trendelenburg position took more x-ray these seem to be subsiding and no further evident Cholangiocath was removed the cystic duct was doubly clipped and divided the artery is stated was easily identified doubly clipped proximally once distally and divided gallbladder was taken in antegrade fashion leaving pretty much posterior peritoneum with the dissection due to the edema was fairly easy gallbladder lifted off the liver and placed in Endopouch and taken out intact through the epigastric port subhepatic suprahepatic area was then checked for stasis again excellent camera placed in the right upper subcostal port to visualize the umb ilical opening in the trocar site no adhesions are identified individual trocar was taken out of direct visualization 5 mm all closed with 4-0 Monocryl Steri- Strips applied procedure tolerated well by the patient estimated blood loss 5 cc addendAgustin KELSEY was present throughout the procedure and helped with camera work exposure and wound closure thank you Surgeon Luis Antonio Barnard MD Project Officer K SHREE KELSEY Estimated Blood Loss 5 Findings Consistent with Post-Op Diagnosis Specimens gallbladder and contents Description of Procedure merda I attest to the content of the Intraoperative Record and any orders documented therein. Any exceptions are noted below.
[2019-02-19] MEDS: fentaNYL citrate 100 MCG/2 ML VIAL IV PRN ×2 (12:50→12:57)
--- NOTE | 2019-02-19 13:16 | Anesthesiology Progress Note ---
Date of Service February 19, 2019 Anesthesia Post Procedure Vital Signs Vital Signs: Temp Pulse Pulse Pulse Pulse Resp BP 02/19/19 13:00 75 16 02/19/19 12:50 70 14 02/19/19 12:40 58 L 16 02/19/19 12:30 70 16 02/19/19 12:20 68 20 02/19/19 12:11 36.2 C L 71 16 02/19/19 10:08 36.4 C L 80 18 02/19/19 09:26 65 02/19/19 07:13 36.3 C L 66 16 02/18/19 23:50 36.4 C L 69 18 02/18/19 20:15 36.8 C 79 16 02/18/19 19:03 83 22 118/65 02/18/19 17:30 92 H 30 H 124/72 02/18/19 16:46 02/18/19 16:24 36.4 C L 106 H 16 131/79 BP Pulse Ox 02/19/19 13:00 121/79 96 02/19/19 12:50 141/77 H 95 02/19/19 12:40 118/80 93 02/19/19 12:30 129/82 96 02/19/19 12:20 129/80 92 02/19/19 12:11 130/71 89 L 02/19/19 10:08 129/86 96 02/19/19 09:26 139/81 02/19/19 07:13 110/68 94 02/18/19 23:50 101/64 94 02/18/19 20:15 127/83 97 02/18/19 19:03 95 02/18/19 17:30 96 02/18/19 16:46 98 02/18/19 16:24 98 Pain Intensity Right Upper Abdomen: Pain Intensity: 6 Transfer of Care Handoff Completed per policy Notes Mental Status: alert / awake / arousable Patient Amnestic to Procedure: Yes Nausea / Vomiting: adequately controlled Pain: adequately controlled Airway Patency, RR, SpO2: stable & adequate BP & HR: stable & adequate Hydration State: stable & adequate Anesthetic Complications: no major complications apparent
[2019-02-19] MEDS ORDERED: HYDROmorphone INJ 0.5 MG/0.5 ML SYR IV PRN (13:32)
[2019-02-19] MEDS ORDERED: HYDROmorphone INJ 1 MG/ML SYRINGE IV PRN (13:32)
[2019-02-19] MEDS: OXYCODONE/ACETAMINOPHEN 5mg/325mg TAB PO PRN ×3 (14:46→23:52)
[2019-02-19] MEDS: SERTRALINE HCL 100 MG TABLET PO SCH (21:31)
[2019-02-20] MEDS: LACTATED RINGER'S 1,000 ML IV SCH (01:41)
[2019-02-20] MEDS: AMPHETAMINE ASP/SULF/DEXTRAMPH 20 MG TAB PO SCH (06:11)
[2019-02-20] MEDS: OXYCODONE/ACETAMINOPHEN 5mg/325mg TAB PO PRN (06:42)
--- NOTE | 2019-02-20 09:20 | Surgery Progress Note ---
Date of Service February 20, 2019 Assessment & Plan (1) Acute cholecystitis: POD 1 lap [place] ok for discharge seen with Dr. Barnard Subjective tolerating diet Physical Exam Gastrointestinal (Abdomen): Inspection/Auscultation: + abdominal surgical incision (clean, dry); abdomen not distended Results & Data Vital Signs (Past 12 Hours) Vital Signs Temp Pulse Pulse Resp BP BP Pulse Ox 02/20/19 07:33 36.4 C L 87 16 129/67 95 02/20/19 03:59 36.3 C L 92 H 18 124/70 93 02/19/19 23:15 36.5 C 96 H 20 123/77 95 PG Care Time/CCT Total # of Minutes Spent Total Time Spent with Patient: Total time spent is greater than 50% in coordination of care (as documented) at patient's floor/unit and/or counseling patient:
[2019-02-20] MEDS: ATENOLOL 25 MG TABLET PO SCH (09:23)
--- NOTE | 2019-02-20 09:57 | Discharge Summary ---
Date of Service February 20, 2019 Principal Diagnosis Acute cholecystitis Discharge Exam Gastrointestinal (Abdomen) Inspection/Auscultation: + abdominal surgical incision (clean, dry) Percussion/Palpation: abdomen soft Discharge Data Allergies Allergy/AdvReac Type Severity Reaction Status Date / Time No Known Allergies Allergy Unverified 12/25/18 23:02 Procedures Performed Operation Date: 02/19/19 07:00 Actual Procedures p Laparoscopic Cholecystectomy with Cholangiogram - Luis Antonio Barnard MD Ordered Studies 02/18/19 16:29 CT abd pelvis IV con only Stat 02/18/19 17:30 US gallbladder Stat 02/19/19 09:35 [place] cholangiogram OR Routine Hospital Course (1) Acute cholecystitis: 38 y/o male presented to ED with 4 day h/o abdominal pain. CT suggested cholecystitis which was confirmed by ultrasound. He was admitted to the surgical service that evening and taken to the operating room the next morning for laparoscopic cholecystectomy. He was returned to the surgical floor and kept overnight. He had some urinary hesitancy that resolved by the next morning. He was tolerating diet and analgesics and was stable for discharge. Total Time Total Time Spent Total Time Spent (In Minutes): 10 Discharge Plan Discharge Items Patient Disposition: Home - Self-Care Reason For Visit: ACUTE CHOLECYSTITIS Discharge Diagnosis: laparoscopic cholecystectomy Activity: Per Instructions section Lifting: No more than 10 pounds Bathing Comment: you may shower starting 02/20/19. No soaking in tubs Exercise/Sports: Wait until after follow-up appointment Driving/Machine Use: do not resume driving while taking narcotics for pain Non-emergency contact: Surgeon Call non-emergency contact if: you have any medication questions, your symptoms worsen, your pain is not controlled, your pain is worsening, you have a fever, your temperature is above 101.5, your wound has increased redness, your wound has increased drainage and your wound pain has increased Follow-up/Referrals: Luis Antonio Barnard MD [Surgeon] - (Please call to schedule follow up in clinic within 1 week.) PCP,NO [Primary Care Provider] - Diet: Regular Addtl Attending Provider Instructions: You have white bandages, called steri strips that will stay in place. You may shower with these on. They will fall off on their own in about 1 wk. Pending Studies at Discharge: No Stand-Alone Forms: Call Back Authorization, My [facility], Opioid Pain Management, Work/School Release (Inpt), Smoking Cessation Medications and DC Order Prescriptions: New oxycodone-acetaminophen [Percocet] 5-325 mg tablet 1 - 2 tab PO .every 4-6 hours PRN (Reason: pain, for initial therapy. max 8 per day) Qty: 10 RF: 0 Continued sertraline [Zoloft] 100 mg Tablet 100 mg PO QPM RF: 0 atenolol 25 mg Tablet 0 mg PO QAM RF: 0 dextroamphetamine-amphetamine [Adderall] 20 mg Tablet 20 mg PO BID RF: 0 Excedrin Migraine 250-250-65 mg Tablet 1 tab PO Q6H PRN (Reason: Migraine Headache) RF: 0 nicotine [Nicoderm CQ] 21 mg/24 hr patch 24 hour 1 patch TD DAILY PRN (Reason: Nicotine Withdraw) RF: 0 Discharge Orders: Discharge Order (Routine); Ordered 02/20/19 Ordered By: Kirk Trinidad/Other Patient Handouts: Surgery Prevent DVT After Admission Data Admit Date/Time: 02/18/19 19:41 Attending Provider: Luis Antonio Barnard Admit Provider: Luis Antonio Barnard Primary Care Provider: PCP,NO Other Interventions: Discharge Summary Assessment (RN) Last Done: 02/20/19 09:42
== END 2019-02-20 10:47 | disposition home or self-care (01) | DRG 419 ==
LOC: ED 16:15 → 3W 19:41

== ENCOUNTER 2019-10-13 17:33 | Inpatient (IN) ==
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
[2019-10-13 18:41] LABS: Appearance Urine Clear (Clear); Bilirubin Urine Negative (Negative); Blood Urine Negative (Negative); Color Urine Yellow; Glucose Urine UA Negative (Negative); Ketones Urine Trace (Negative); Leukocyte Esterase Urine Negative (Negative); Nitrite Urine Negative (Negative); Protein Urine Negative (Negative); Specific Gravity Urine 1.028 (1.000-1.030); Urobilinogen Urine Negative (Negative)
[2019-10-13 19:08] LABS: Amphetamines+Metham, Urine Neg (Neg); Barbiturates, Urine Neg (Neg); Benzodiazepine, Urine Neg (Neg); Cocaine, Urine Neg (Neg); MDMA (Ecstacy), Urine Neg (Neg); Methadone, Urine Neg (Neg); Opiate, Urine Neg (Neg); Phencyclidine, Urine Neg (Neg)
[2019-10-13 19:25] LABS: Basophils # (auto) 0.05 K/uL (0-0.2); Basophils % (auto) 0.4 %; Eosinophils # (auto) 0.13 K/uL (0-0.5); Hematocrit (blood only) 48.3 % (42-52); Immature Granulocytes # (auto) 0.04 K/uL (0.00-0.02); Immature Granulocytes % (auto) 0.3 %; Lymphocytes # (auto) 3.66 K/uL (1.2-3.4); Lymphocytes % (auto) 28.3 %; Mean Corpuscular Hemoglobin 32.4 pg (25-34); Mean Corpuscular Hgb Conc 35.2 g/dL (32-36); Mean Corpuscular Volume 92.2 fL (80-100); Mean Platelet Volume 10.5 fL (7.4-10.4); Monocytes # (auto) 1.11 K/uL (0.11-0.59); Monocytes % (auto) 8.6 %; Neutrophils # (auto) 7.94 K/uL (1.4-6.5); Neutrophils % (auto) 61.4 %; Platelet Count 261 K/uL (130-400); RDW Coefficient of Variation 12.6 % (11.5-14.5); RDW Standard Deviation 42.3 fL (36.4-46.3); Red Blood Count 5.24 M/uL (4.7-6.1); White Blood Count 12.93 K/uL (4.8-10.8)
[2019-10-13 19:52] LABS: Albumin Level 3.9 gm/dl (3.4-5.0); BUN Creatinine Ratio 12.7 (10-20); Calcium 9.6 mg/dl (8.5-10.1); Creatinine Clr Calc Pharmacy 113.3 ml/min; Est GFR (African American) 102.7; Est GFR (Non-African American) 88.6; Potassium 4.3 mmol/L (3.5-5.1)
[2019-10-13 19:55] LABS: Acetaminophen < 2 ug/ml (10-30); Salicylate 4.4 mg/dl (2.8-20)
[2019-10-13 20:03] LABS: Albumin Globulin Ratio 1.2 (0.9-2); Bilirubin,Total 0.4 mg/dl (0.2-1); Globulin 3.3 gm/dl (2.5-4.0); Thyroid Stimulating Hormone 0.904 uIu/ml (0.300-4.500); Total Protein 7.2 gm/dl (6.4-8.2)
--- NOTE | 2019-10-13 22:26 | Emergency Department Note ---
ED Visit Note The patient was signed out to me by Dr. Samuel. The patient is voluntary at this point. He does have a 302 on the chart by the girlfriend. The patient is felt to require inpatient treatment and is willing at this point. Bed search is underway. Signed out to Dr. Martinez. .
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
[2019-10-14] MEDS ORDERED: NON-FORMULARY MEDICATION (Omeprazole 40 MG) PO PRN (08:13)
[2019-10-14] MEDS ORDERED: hydrOXYzine HCl 10 MG TAB PO PRN (08:13)
[2019-10-14] MEDS: PROPRANOLOL HCL 20 MG TAB PO SCH ×2 (08:51→21:16)
[2019-10-14] MEDS ORDERED: AMPHETAMINE ASP/SULF/DEXTRAMPH ER 20 MG CAP PO SCH (09:00)
[2019-10-14] MEDS ORDERED: BISMUTH SUBSALICYLATE PER ML OMNICELL CHARGE PO PRN (10:17)
[2019-10-14] MEDS ORDERED: MAGNESIUM HYDROXIDE SUSP 30 ML UDC PO PRN (10:17)
[2019-10-14] MEDS ORDERED: ACETAMINOPHEN 325 MG TAB PO PRN (10:17)
[2019-10-14] MEDS ORDERED: ALUMINUM/MAGNESIUM SUSP 30 ML UDC PO PRN (10:17)
[2019-10-14] MEDS ORDERED: SODIUM CHLORIDE 0.65% NA SOLN 45 ML (OCEAN) PRN (10:17)
[2019-10-14] MEDS ORDERED: PANTOprazole 40 MG TAB PO PRN (10:21)
--- NOTE | 2019-10-14 10:37 | Emergency Department Note ---
ED Visit Note This patient was signed out to me at change of shift by Dr. hughes pending placement in a psychiatric facility. He is under a 302 signed warrant. The patient was accepted to [facility] [address] and taken upstairs to the psychiatric [facility]an. .
--- NOTE | 2019-10-14 11:43 | History & Physical ---
Date of Service October 14, 2019 Impression / Recommendations Impression 39-year-old male with a history of ADHD per his report, as well as multiple arrests/criminal charges and addiction issues who is admitted on a 302 involuntary commitment after he was evaluated at the crisis center and reported suicidal thoughts in the context of argument with his girlfriend. He has numerous psychosocial stressors including on parole for felony assault charges, unemployment, homelessness, financial problems, and chronic relationship discord. He gave his girlfriend half of his Adderall prescription so ran out early, and also ran out of cannabis which he listed as a stressor. He is angry about being here and does not feel that he needs inpatient treatment, and his girlfriend has apparently left town as a result of their multiple fights and police involvement over the past couple of days. Inpatient treatment is medically necessary due to the severity of his symptoms and risk for suicide if discharged, as he does have a history of 2 serious suicide attempts in the past. (1) Suicidal ideation: 10/13 -involuntary admission, suicide checks for safety, locked unit. Encourage group attendance and participation, work on healthy coping skills and discharge safety plan. -Family meeting with girlfriend. -Explore ways to increase outpatient supports-patient was supposed to get case management with [facility] Alex[facility], but never followed up. Coordinate with [facility], as he states he is scheduled to start therapy there. (2) ADHD: 10/13 - Discontinue Adderall due to misuse, ran out early which he attributes to giving half his prescription to his girlfriend. H/o substance abuse, may benefit from nonstimulant medication trial. PDMP shows regular Adderall prescriptions from [facility] in [place], as well as multiple prescriptions for opiate pain medications from 4 different clinicians in the past year. -Coordinate care with LOW Rocha, at [facility] -called her to discuss medications, and will send records to coordinate care. (3) Cannabis abuse: Provide psychoeducation about the risks of ongoing cannabis use, including worsening of psychiatric symptoms, and recommendations for abstinence. He is unwilling to change his behavior and does not feel this is a problem. (4) Alcohol abuse: Patient reports history of alcoholism. Benzodiazepines are contraindicated, and would not recommend they be prescribed. He is asking for Xanax, advised it is not indicated. Risk Factors Assessment Male: Yes : Yes Do You Have Access To A Gun?: No Health Problems: No Mental Health Diagnoses: Yes Substance Use Disorders: Yes Previous Attempt: Yes Previous Psychiatric Hospitalization: Yes Hopelessness: Yes Smoker: Yes Protective Factors Assessment : No Responsible for Young Children: No Employed: No Stable Relationships: No Supportive Family: No Psychiatric History Identifying Data FLORENCIA NARAYAN is a 39-year-old M who currently lives in various hotels with his girlfriend, has a history of alcoholism, ADHD, and anxiety, and was admitted on 10/14/19 10:17 on a 302 involuntary commitment for suicidal ideation. Chief Complaint "I have a little chip on my shoulder, this 302 thing...". History of Present Illness The patient has had 2 ER presentations in the past 24 hours. He initially presented in the community director hours yesterday, 10/13/2019, reporting anxiety and chest pain. He had an EKG and continuous cardiac monitoring, which showed sinus rhythm rate 88. He had a chest x-ray which was normal, and CBC showed mild leukocytosis. Troponin was negative, and electrolytes unremarkable. He reported that he had the chest pain daily for the past 2-3 years, and was discharged home with recommendations to follow-up with his PCP. He returned he returned to the ER in the evening via police on a 302 warrant, after he made suicidal statements at the [facility], stating he would not be alive tomorrow, and that if he had a gun he would shoot himself. The petition states "on 10/13/2019 I spoke with Florencia Narayan at the [facility] crisis walk-in center. While present he told me he has suicidal thoughts and learned his girlfriend is leaving him. Florencia described history of suicide attempts at the end of each relationship he has had including hanging himself, overdosing, and cutting himself. Florencia said on this day if he has to be alone "I am not going to be alive tomorrow" because he will "do it today," and will kill himself in "what ever way comes up," he should not be alive, he can do what he wants with his own body, he hopes his girlfriend and others see him in his coffin, "I am going to do anything I can," and he wants to go in for inpatient mental health treatment. He has a history of inpatient mental health treatment." Suicidal thoughts occurred after his girlfriend broke up with him while he was being assessed at the [facility]. He reported multiple stressors including that he and his girlfriend are homeless, living in an efficiency apartment but have a tenuous job situation, have had a stressed relationship and the police had been involved several times in the past 24 hours. They have been together for several years after meeting at a homeless [facility], are in a program for alcoholics together, and are both on parole. He said he ran out of Adderall early as he gave his girlfriend half of it, and that he had run out of marijuana. He had been seen at the [facility], and said that he has chronic suicidal thoughts which he believed were "being used against him." He reported a history of 2 previous suicide attempts, and refused recommendations for inpatient psychiatric treatment. While in the ER, he said he got text messages from his girlfriend stating she was taking a break to see her family in [place] and would be back in a few days. A bed search overnight was unsuccessful, and he was admitted to our unit this morning when a bed became available. He said that he was unable to leave the [facility] due to being on "state parole," but his parole office was contacted and said that he could be placed outside the [facility]. Admission labs notable for WBC 12.93, chloride 108, TSH 0.904, UA with trace ketones, UDS + THC. On my assessment, he is focused on the injustice of his being involuntarily committed, stating he went to the [facility] "to get some relationship help for me and my girlfriend" on the suggestion of an [facility] staff member. He admits there has been "a lot of drama" between him and his girlfriend recently, and the police have been involved, had asked her to leave the apartment, but then brought her back hours later and wanted to know if she could spend the night there. He agreed with the condition that she left the following morning (Sunday), stating he was scheduled to start a new job at a [employer]. She then refused to leave, so he did not go to work, as he was afraid she would steal things. He instead presented to the ER with anxiety, and was told he had a panic attack. Later that day, he and his girlfriend went to the [facility] together "for resources for help," and states that while there, the staff them and would not let them see each other, "I just wanted to give her a hug and a kiss, and they wouldn't let me." He states his girlfriend and he never broke up, and that she was messaging him at the [facility] stating she wanted to hug him. He says they were "asking me a lot of questions, I didn't want to answer them, so I left." Apparently he returned later, and police were there to bring him to the hospital. He minimizes the suicidal statements he made, stating "I was just upset," and does not think he should have been 302 because "I didn't do anything, I haven't hurt myself in 10 years." He will not answer questions directly regarding his suicidal thoughts, but adamantly states he is not depressed, and says he just wants "my old medications, Adderall, Xanax, and medical marijuana." He says he was previously in treatment in [facility] where he was prescribed Xanax and Adderall. He says he ran out of his Adderall early because he gave half of the prescription to his girlfriend, and stopped getting medical marijuana a couple of months ago because he did not have the money to renew his card. He reports anxiety that is situational and occurs when he is arguing with his girlfriend, stressed due to multiple psychosocial issues as below, but denies symptoms consistent with crow, history of psychosis, nor pervasive anxiety. He later states he has anxiety "all the time," and that is why he needs marijuana and Xanax. He says he is from [place] originally, and his girlfriend is from [place]. They came to [facility] last year after they both lost their jobs in [place], and went to [place] to stay with the patient's sister. He got into conflicts with her boyfriend, and they were kicked out" became homeless" and 01/2019. They are currently living in a 1 room efficiency apartment that is paid for by the [employer] of the [employer] program. He is on parole, and his girlfriend is on probation, and neither of them work. Reports are inconsistent, and he is focused on discharge. Past Psychiatric History Previous Psych History: Previously treated in [facility] by Dr. Gonzalez, whom he says prescribed Xanax and Adderall. Current Psychiatric Diagnosis: Depression NOS, substance abuse, personality disorder. Outpatient Services: L[facility] Rocha at [facility] Says he is scheduled to start therapy with [facility] on 10/26/2019 Previously referred to case management with Floresita Alexis, but never followed up. Previous Psych Admissions: [facility] -for 3 days in 04/2019 after his girlfriend left him [place] after a suicide attempt by cutting his arm in his mid 20s Do You Have Access To A Gun?: No History of Previous Suicide Attempt: Yes (1 at age 19 after his parents , and another 1 his first marriage broke up) Describe Attempts in the Past: Hanging -age 19 when parents . Cut arms -mid 20s when he sepa Past Medication Trials: Bupropion -started at the [facility], said it made him feel worse Adderall Allergies Allergy/AdvReac Type Severity Reaction Status Date / Time No Known Allergies Allergy Verified 10/13/19 06:31 Home Medications Home Medications Medication Instructions Recorded Confirmed Type omeprazole 40 mg capsule,delayed 40 mg PO QAM PRN 09/12/19 10/14/19 History release propranolol 20 mg tablet 20 mg PO BID 09/12/19 10/14/19 History hydroxyzine HCl 10 mg PO HS PRN 09/14/19 10/14/19 History dextroamphetamine-amphetamine 20 mg PO DAILY 10/13/19 10/14/19 History Family History Family History of: Refuses To Discuss Alcohol History Hx of Alcohol Use Over the Past 12 Months: No Patient reports a history of alcoholism, with last use in his mid 20s. Smoking Use tobacco type: cigarettes Smoking Status: Current every day smoker Substance History Hx of Prescription Med Misuse Over the Past 12 Months: Yes (Adderall) Hx of Organic Substance Use Over the Past 12 Months: Yes (cannabis) Personal History Living Arrangements: Apartment (Paid for by [facility]) Living Arrangements Comments: He is from [facility] originally. He and his girlfriend have been in [facility] since 2019. 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 current occupational status: employed Feels Safe at Home: Yes Review of Systems Review of Systems: All systems reviewed & are unremarkable except as noted in Subjective Physical Exam Psychiatric: Orientation: alert and cooperative (partially) Apperance: appropriately dressed unkempt facial hair, poor dentition, multiple tattoos b/l UEs Eye Contact: + fair eye contact fidgeting, playing with a stress ball hyperverbal, irritated tone at times superficial, mildly labile, dramatic Mood: + anxious mood and + angry mood about 302 Thought Process: + circumstantial thought process focused on anger about commitment Thought Content: + preoccupation blaming others for his situation Suicidal Thoughts: + reports suicidal thoughts reports chronic SI when upset, denies current plan or intent Homicidal Thoughts: denies homicidal thoughts Hallucinations: no auditory hallucinations Cognition: recent memory grossly intact and language grossly intact Insight: + limited insight Judgement: + limited judgement Vital Signs (Past 24 Hours): Last Vital Signs Temp 36.9 C 10/14/19 07:36 Pulse 76 10/14/19 10:48 Resp 18 10/14/19 10:48 BP 125/94 10/14/19 10:48 Pulse Ox 95 10/14/19 10:48 Exam Statement: A physical exam was performed in the ER prior to admission to the unit by Dr. Popeye Martinez. I accept that physical as correct/medical clearance for the inpatient physical exam. Results & Data ([facility]) Laboratory Results Laboratory Results - last 24 hr 08/12/2210/13/19 10/13/19 18:21 18:21 18:21 WBC RBC Hgb Hct MCV MCH MCHC RDW Std Deviation RDW Coeff of Zakia Plt Count MPV Immature Gran % (Auto) Neut % (Auto) Lymph % (Auto) Frio % (Auto) Eos % (Auto) Baso % (Auto) Neut # (Auto) Lymph # (Auto) Frio # (Auto) Eos # (Auto) Baso # (Auto) Immature Gran # (Auto) Sodium Potassium Chloride Carbon Dioxide Anion Gap BUN Creatinine Est Cr Clr Drug Dosing Est GFR ( Amer) Est GFR (Non-Af Amer) BUN/Creatinine Ratio Glucose Calcium Total Bilirubin AST ALT Alkaline Phosphatase Total Protein Albumin Globulin Albumin/Globulin Ratio TSH Urine Color Yellow Urine Appearance Clear Urine pH 5.0 Ur Specific [place] 1.028 Urine Protein Negative Urine Glucose (UA) Negative Urine Ketones Trace H Urine Blood Negative Urine Nitrite Negative Urine Bilirubin Negative Urine Urobilinogen Negative Ur Leukocyte Esterase Negative Salicylates Urine Opiates Screen Neg Ur Methadone, Qual Neg Acetaminophen Urine Barbiturates Neg Ur Phencyclidine (PCP) Neg U Amphetamin/Meth Scrn Neg MDMA (Ecstasy) Screen Neg U Benzodiazepines Scrn Neg Ur Cocaine Metabolite Neg U Marijuana (THC) Screen Pos H U Marijuana THC Carboxy Pending Drug Screen Comment Pending Ethyl Alcohol mg/dL 10/13/19 10/13/19 10/13/19 19:01 19:01 19:01 WBC 12.93 H RBC 5.24 Hgb 17.0 Hct 48.3 MCV 92.2 MCH 32.4 MCHC 35.2 RDW Std Deviation 42.3 RDW Coeff of Zakia 12.6 Plt Count 261 MPV 10.5 H Immature Gran % (Auto) 0.3 Neut % (Auto) 61.4 Lymph % (Auto) 28.3 Frio % (Auto) 8.6 Eos % (Auto) 1.0 Baso % (Auto) 0.4 Neut # (Auto) 7.94 H Lymph # (Auto) 3.66 H Frio # (Auto) 1.11 H Eos # (Auto) 0.13 Baso # (Auto) 0.05 Immature Gran # (Auto) 0.04 H Sodium 140 Potassium 4.3 Chloride 108 H Carbon Dioxide 25 Anion Gap 7.0 BUN 14 Creatinine 1.06 Est Cr Clr Drug Dosing 113.3 Est GFR ( Amer) 102.7 Est GFR (Non-Af Amer) 88.6 BUN/Creatinine Ratio 12.7 Glucose 90 Calcium 9.6 Total Bilirubin 0.4 AST 22 ALT 48 Alkaline Phosphatase 63 Total Protein 7.2 Albumin 3.9 Globulin 3.3 Albumin/Globulin Ratio 1.2 TSH 0.904 Urine Color Urine Appearance Urine pH Ur Specific [place] Urine Protein Urine Glucose (UA) Urine Ketones Urine Blood Urine Nitrite Urine Bilirubin Urine Urobilinogen Ur Leukocyte Esterase Salicylates 4.4 Urine Opiates Screen Ur Methadone, Qual Acetaminophen < 2 L Urine Barbiturates Ur Phencyclidine (PCP) U Amphetamin/Meth Scrn MDMA (Ecstasy) Screen U Benzodiazepines Scrn Ur Cocaine Metabolite U Marijuana (THC) Screen U Marijuana THC Carboxy Drug Screen Comment Ethyl Alcohol mg/dL 10/13/19 19:01 WBC RBC Hgb Hct MCV MCH MCHC RDW Std Deviation RDW Coeff of Zakia Plt Count MPV Immature Gran % (Auto) Neut % (Auto) Lymph % (Auto) Frio % (Auto) Eos % (Auto) Baso % (Auto) Neut # (Auto) Lymph # (Auto) Frio # (Auto) Eos # (Auto) Baso # (Auto) Immature Gran # (Auto) Sodium Potassium Chloride Carbon Dioxide Anion Gap BUN Creatinine Est Cr Clr Drug Dosing Est GFR ( Amer) Est GFR (Non-Af Amer) BUN/Creatinine Ratio Glucose Calcium Total Bilirubin AST ALT Alkaline Phosphatase Total Protein Albumin Globulin Albumin/Globulin Ratio TSH Urine Color Urine Appearance Urine pH Ur Specific [place] Urine Protein Urine Glucose (UA) Urine Ketones Urine Blood Urine Nitrite Urine Bilirubin Urine Urobilinogen Ur Leukocyte Esterase Salicylates Urine Opiates Screen Ur Methadone, Qual Acetaminophen Urine Barbiturates Ur Phencyclidine (PCP) U Amphetamin/Meth Scrn MDMA (Ecstasy) Screen U Benzodiazepines Scrn Ur Cocaine Metabolite U Marijuana (THC) Screen U Marijuana THC Carboxy Drug Screen Comment Ethyl Alcohol mg/dL < 3.0 Current Inpatient Medications Current Inpatient Medications: Current Inpatient Medications Acetaminophen (Tylenol) 650 mg PO Q4H PRN PRN Reason: Headache or Minor Fever Stop: 11/13/19 10:16 Al Hydrox/Mg Hydrox/Simethicone (Maalox) 30 ml PO Q4H PRN PRN Reason: GI Upset Stop: 11/13/19 10:16 Bismuth Subsalicylate (Kaopectate) 15 ml PO PRN PRN PRN Reason: Loose Stool Stop: 11/13/19 10:16 Hydroxyzine HCl (Vistaril) 10 mg PO HS PRN PRN Reason: Sleep Stop: 11/13/19 08:12 Hydroxyzine HCl (Vistaril) 25 mg PO Q4H PRN PRN Reason: Anxiety Stop: 11/13/19 10:16 Magnesium Hydroxide (Milk Of Magnesia) 30 ml PO DAILY PRN PRN Reason: Constipation Stop: 11/13/19 10:16 Pantoprazole Sodium (Protonix) 40 mg PO QAM PRN PRN Reason: Acid Reflux Stop: 11/13/19 10:20 Propranolol HCl (Inderal) 20 mg PO BID BORIS Stop: 11/13/19 08:59 Last Admin: 10/14/19 08:51 Dose: 20 mg Documented by: Sodium Chloride (Harney Nasal) 1 - 2 sprays NA PRN PRN PRN Reason: Nasal Dryness/Congestion Stop: 11/13/19 10:16
[2019-10-14 12:54] VITALS: O2SAT 98
[2019-10-14] MEDS: NICOTINE POLACRILEX 2 MG GUM MT PRN ×2 (13:34→19:34)
[2019-10-14] MEDS: NICOTINE 21 MG/24 HR TDSY TD SCH (17:30)
[2019-10-15 06:43] VITALS: TEMP 97.7
[2019-10-15] MEDS: PROPRANOLOL HCL 20 MG TAB PO SCH (08:27)
[2019-10-15] MEDS: NICOTINE 21 MG/24 HR TDSY TD SCH (08:29)
[2019-10-15 12:20] VITALS: BP 141/88; PULSE 102
--- NOTE | 2019-10-15 12:37 | Discharge Summary ---
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 dextroamphetamine-amphetamine 20 mg capsule,extended release 24hr 20 mg PO DAILY RF: 0 Discharge Orders: Discharge Order (Routine); Ordered 10/15/19 Ordered By: Ariana Lennon Admission Data Admit Date/Time: 10/14/19 10:17 Attending Provider: Ariana Lennon Admit Provider: Ariana Lennon Primary Care Provider: Megan Li Other Interventions: PSY Interdisciplinary Discharge Planning Last Done: 10/15/19 09:40 Coding Level of Care Code 19748 D/C day mgmt > 30 min Diagnoses Suicidal ideation R45.851 Personality disorder F60.9 ADHD F90.9 Cannabis abuse F12.10 Alcohol abuse F10.10
[2019-10-15 23:49] LABS: Marijuana Quant, GCMS Urine 225 ng/mL (<5)
== END 2019-10-15 13:15 | disposition home or self-care (01) | DRG 883 ==
LOC: ED 17:33 → 3S 10-14 10:17